=== PATIENT | male | born 1995 | race Caucasian/White ===

== ENCOUNTER 2019-02-15 09:12 | Emergency (ER) | payer MEDICAID, OTHER ==
[2019-02-15 09:41] VITALS: BP 128/63; PULSE 86
--- NOTE | 2019-02-15 10:09 | EDM.PDOC ---
ED HPI GENERAL MEDICAL PROBLEM - General Chief Complaint: General Stated Complaint: BODY NUMBNESS/COLD SYMPTOMS Time Seen by Provider: 02/15/19 09:46 Source of Information: Reports: Patient History Limitations: Reports: No Limitations - History of Present Illness INITIAL COMMENTS - FREE TEXT/NARRATIVE: The patient presents with a cough, shortness of breath, generalized weakness. This has been going on for about 2 weeks. The past couple days are worse. He is coughing up yellow phlegm. He did not measure any temp. He has not been able to eat or drink much and he nearly passed out a few times. He has nausea but no vomiting. He has some shortness of breath but no chest pain. He has no medical problems. He also has muscle aches. Onset: Gradual Duration: Week(s): (2) Location: Reports: Generalized Quality: Reports: Ache Severity: Moderate Improves with: Reports: None Worsens with: Reports: None Associated Symptoms: Reports: Cough, Nausea/Vomiting, Shortness of Breath. Denies: Fever/Chills, Headaches Generalized Pain Score (Numeric/FACES): 8 - Related Data Allergies Allergy/AdvReac Type Severity Reaction Status Date / Time lactose Allergy Stomach Verified 02/15/19 09:41 Upset Home Meds: Home Meds Azithromycin [Zithromax] 250 mg PO DAILY #6 tab 02/15/19 [Rx] Codeine/Promethazine [Phenergan with Codeine] 5 - 10 ml PO Q6HR PRN #300 ml 07/05 [Rx] Past Medical History - Past Health History Medical/Surgical History: Denies Medical/Surgical History Gastrointestinal History: Reports: Other (See Below) Other Gastrointestinal History: H-pylori Social & Family History - Caffeine Use Caffeine Use: Reports: Soda - Living Situation & Occupation Living situation: Reports: Single Occupation: Unemployed ED ROS GENERAL - Review of Systems Review Of Systems: See Below Constitutional: Reports: Chills, Malaise, Weakness, Fatigue HEENT: Reports: No Symptoms Respiratory: Reports: Shortness of Breath, Cough Cardiovascular: Reports: No Symptoms Endocrine: Reports: No Symptoms GI/Abdominal: Reports: Nausea. Denies: Abdominal Pain, Vomiting : Reports: No Symptoms Musculoskeletal: Reports: No Symptoms ED EXAM, GENERAL - Physical Exam Exam: See Below Exam Limited By: No Limitations General Appearance: Alert, No Apparent Distress Ears: Normal External Exam Nose: Normal Inspection Head: Atraumatic, Normocephalic Neck: Normal Inspection, Supple, Non-Tender Respiratory/Chest: No Respiratory Distress, Wheezing (Mild) Cardiovascular: Regular Rate, Rhythm, No Edema, No Murmur GI/Abdominal: Soft, Non-Tender, No Organomegaly, No Mass Back Exam: Normal Inspection Extremities: Normal Inspection Course - Vital Signs Last Recorded V/S: Last Vital Signs Temp 98.2 F 02/15/19 09:38 Pulse 86 02/15/19 09:38 Resp 18 02/15/19 09:38 BP 128/63 02/15/19 09:38 Pulse Ox 99 02/15/19 09:38 Departure - Departure Time of Disposition: 10:15 Disposition: Home, Self-Care 01 Condition: Good Clinical Impression: Bronchitis - Discharge Information *PRESCRIPTION DRUG MONITORING PROGRAM REVIEWED*: No *COPY OF PRESCRIPTION DRUG MONITORING REPORT IN PATIENT HERLINDA: No Prescriptions: Codeine/Promethazine [Phenergan with Codeine] 5 - 10 ml PO Q6HR PRN #300 ml PRN Reason: Cough Azithromycin [Zithromax] 250 mg PO DAILY #6 tab Referrals: Susana Yan NP [Primary Care Provider] - 1 Week Forms: ED Department Discharge Additional Instructions: Use the medicine as prescribed. Take tylenol or motrin for pain or fever. Drink plenty of fluids. Please return if you are worse.
== END 2019-02-15 10:25 | disposition home or self-care (01) ==
LOC: JD.ED 09:12
DX: J40 Bronchitis, not specified as acute or chronic (principal); Z91.011 Allergy to milk products
CPT/HCPCS: 99283

== ENCOUNTER 2020-05-10 07:15 | Emergency (ER) | payer SELFPAY ==
[2020-05-10 07:31] VITALS: BP 127/83; PULSE 84
--- NOTE | 2020-05-10 08:06 | EDM.PDOC ---
ED HPI GENERAL MEDICAL PROBLEM - General Chief Complaint: ENT Problem Stated Complaint: DENTAL COMPLAINT Time Seen by Provider: 05/10/20 07:56 - History of Present Illness INITIAL COMMENTS - FREE TEXT/NARRATIVE: 24-year-old male presents the emergency room with dental pain. Patient has been having right-sided dental pain his wisdom teeth are coming in is mostly the upper wisdom tooth. He denies fevers or chills but he has pain radiating up into his ear down his jaw. This is been going on for about a month progressively getting worse. He is trying to get into see a dentist and is waiting for some insurance issues to get straightened out. Patient denies any other complaints at this time. Tooth/Teeth Pain Score (Numeric/FACES): 9 - Related Data Allergies Allergy/AdvReac Type Severity Reaction Status Date / Time lactose Allergy Stomach Verified 05/10/20 07:31 Upset Home Meds: Home Meds Acetaminophen/HYDROcodone [[place] 325-5 MG] 1 - 2 tab PO Q6H PRN #20 tablet 05/10/20 [Rx] Amoxicillin 500 mg PO TID #29 capsule 05/10/20 [Rx] Past Medical History - Past Health History Medical/Surgical History: Denies Medical/Surgical History Gastrointestinal History: Reports: Other (See Below) Other Gastrointestinal History: H-pylori Social & Family History - Tobacco Use Tobacco Use Status *Q: Current Every Day Tobacco User Years of Tobacco use: 2 Packs/Tins Daily: 0.2 - Caffeine Use Caffeine Use: Reports: None - Recreational Drug Use Recreational Drug Use: Yes Recreational Drug Type: Reports: Marijuana/Hashish Recreational Drug Use Frequency: Daily - Living Situation & Occupation Living situation: Reports: Single Occupation: Unemployed ED ROS ENT - Review of Systems Review Of Systems: See Below Constitutional: Reports: No Symptoms HEENT: Reports: Dental Pain Respiratory: Reports: No Symptoms Cardiovascular: Reports: No Symptoms GI/Abdominal: Reports: No Symptoms ED EXAM, ENT - Physical Exam Exam: See Below Exam Limited By: No Limitations General Appearance: Alert, No Apparent Distress Ears: Normal External Exam, Normal Canal, Hearing Grossly Normal, Normal TMs Nose: Normal Inspection, Normal Mucousa, No Blood Mouth/Throat: Normal Oropharynx, Other (His teeth in general seem to be in pretty good shape his gums seem to be in pretty good shape. His wisdom teeth are starting to come through and are very tender on the left side he has a little bit of erythema of the gums around the upper tooth. No drainage) Head: Atraumatic, Normocephalic Neck: Normal Inspection, Supple, Non-Tender, Full Range of Motion. No: Lymphadenopathy (L), Lymphadenopathy (R) Respiratory/Chest: No Respiratory Distress, Lungs Clear, Normal Breath Sounds Cardiovascular: Normal Peripheral Pulses, Regular Rate, Rhythm, No Edema Course - Vital Signs Last Recorded V/S: Last Vital Signs Temp 36.9 C 05/10/20 07:27 Pulse 84 05/10/20 07:27 Resp 18 05/10/20 07:27 BP 127/83 05/10/20 07:27 Pulse Ox 99 05/10/20 07:27 - Orders/Labs/Meds Orders: Active Orders 24 hr Category Date Time Status Acetaminophen/HYDROcodone [[place] 325-5 MG] Med 05/10/20 08:07 Once 1 tab PO ONETIME ONE Amoxicillin [Amoxil] Med 05/10/20 08:07 Once 500 mg PO ONETIME ONE Departure - Departure Time of Disposition: 08:11 Disposition: Home, Self-Care 01 Clinical Impression: Pain, dental - Discharge Information Referrals: Susana Yan NP [Primary Care Provider] - Forms: ED Department Discharge Additional Instructions: Return to the emergency room with any questions problems or worsening symptoms. You have been started on amoxicillin this is an antibiotic take 1 3 times a day until all gone. You have been given some hydrocodone, to help with the more severe pain. Use this mostly in the evenings and allow 12 hours after taking this medication before driving or returning to work. Follow-up with a dentist as soon as you can. Sepsis Event Note (ED) - Evaluation Sepsis Screening Result: No Definite Risk - Focused Exam Vital Signs: Vital Signs Temp Pulse Resp BP Pulse Ox 05/10/20 07:27 36.9 C 84 18 127/83 99 - My Orders Last 24 Hours: My Active Orders 05/10/20 08:07 Acetaminophen/HYDROcodone [[place] 325-5 MG] 1 tab PO ONETIME ONE Amoxicillin [Amoxil] 500 mg PO ONETIME ONE - Assessment/Plan Last 24 Hours: My Active Orders 05/10/20 08:07 Acetaminophen/HYDROcodone [[place] 325-5 MG] 1 tab PO ONETIME ONE Amoxicillin [Amoxil] 500 mg PO ONETIME ONE
[2020-05-10] MEDS ORDERED: Amoxicillin 500 MG Cap PO ONE (08:07)
[2020-05-10] MEDS ORDERED: Acetaminophen/HYDROcodone 325-5 MG Tab PO ONE (08:07)
== END 2020-05-10 08:30 | disposition home or self-care (01) ==
LOC: JD.ED 07:15
DX: K08.89 Other specified disorders of teeth and supporting structures (principal); F17.210 Nicotine dependence, cigarettes, uncomplicated; Z91.048 Other nonmedicinal substance allergy status
CPT/HCPCS: 99282; A9270; 99283

== ENCOUNTER 2020-05-11 04:48 | Emergency (ER) | payer SELFPAY ==
[2020-05-11 05:07] VITALS: BP 150/89
[2020-05-11] MEDS ORDERED: HYDROmorphone 1 MG/ML Syringe IVPUSH ONE (05:17)
[2020-05-11] MEDS ORDERED: Ondansetron 4 MG/2 ML SDV IVPUSH ONE (05:19)
--- NOTE | 2020-05-11 05:21 | EDM.PDOC ---
<Paul Gao Malissa - Last Filed: 05/11/20 15:02> ED HPI GENERAL MEDICAL PROBLEM - General Chief Complaint: ENT Problem Stated Complaint: tooth pain Time Seen by Provider: 05/11/20 04:58 - Related Data Allergies Allergy/AdvReac Type Severity Reaction Status Date / Time lactose Allergy Stomach Verified 05/11/20 05:07 Upset Home Meds: Home Meds Acetaminophen/HYDROcodone [[place] 325-5 MG] 1 - 2 tab PO Q6H PRN #20 tablet 05/10/20 [Rx] Amoxicillin 500 mg PO TID #29 capsule 05/10/20 [Rx] Course - Re-Assessments/Exams Free Text/Narrative Re-Assessment/Exam: 05/11/20 07:54 Care of this patient has been assumed from Dr. Alicea at change of shift. CT scan of the maxillofacial bones has been completed. The globes appear grossly intact with no definite intraorbital hematoma. The temporomandibular joints are normally aligned. The orbital floors and lamina appreciated are intact. No acute fractures identified. Mild chronic mucosal thickening involves the floor of the maxillary sinuses slightly more prominent on the right than on the left. The visualized mastoid air cells are clear. No soft tissue collection to suggest abscess is identified. The visualized intracranial structures appear grossly normal. Dental caries appear to involve the third maxillary molars bilaterally and the left second maxillary molar is absent. There is no significant periapical lucency about the teeth. Plan patient will be given Rocephin 2 g intravenously to bring the infection under control. He will continue to use [place] tabs 2 every 4 hours as necessary for pain relief. He has a prescription for amoxicillin which he will continue to use as well. Departure - Departure Time of Disposition: 09:10 Disposition: Home, Self-Care 01 Condition: Fair Clinical Impression: Infected dental caries - Discharge Information *PRESCRIPTION DRUG MONITORING PROGRAM REVIEWED*: Not Applicable *COPY OF PRESCRIPTION DRUG MONITORING REPORT IN PATIENT HERLINDA: Not Applicable Instructions: Diet and Dental Disease Referrals: Susana Yan NP [Primary Care Provider] - Forms: ED Department Discharge, ED Return to Work/School Form Additional Instructions: Evaluation in the emergency room today in regards to increased severe pain right upper third molar tooth which is not yet fully erupted. Dr. Alicea ordered a CT scan of the maxillofacial bones to identify the cause of the severe pain. CT scan reveals that you have dental caries worn breakdown of the third molar teeth in the upper maxilla on both sides worse on the right side as compared to the left. There is therefore an infection developing around the nerve root on the right upper third molar causing current pain syndrome. The teeth will have to be extracted by an oral surgeon since they have not fully erupted and you will r equire some degree of sedation to allow this procedure to be performed. In the meantime you were treated with a dose of Rocephin antibiotic 2 g intravenously in the ED. This will start to work in 2 to 4 hours and will last for the next 24 hours. Continue the amoxicillin that you were started on yesterday as prescribed by Dr. Velásquez as well as pain medicine [place] 5/325 mg usually 2 tablets every 3-4 hours as necessary for pain relief for couple of days until the antibiotics become effective. <Girish Alicea - Last Filed: 05/12/20 07:06> ED HPI GENERAL MEDICAL PROBLEM - General Source of Information: Reports: Patient, Old Records (ED visit 05/10/2020) History Limitations: Reports: No Limitations - History of Present Illness INITIAL COMMENTS - FREE TEXT/NARRATIVE: Mr. Diaz is a very pleasant 24-year-old man who, medical records indicate, was seen in this ED just yesterday morning, already, 05/10/2020, with a complaint at that time of a lower right wisdom tooth pain progressively worsening over the past month. He had not arranged to see a dentist. He had not had any fever or oral drainage. He was given a single tablet of [place] and a single tablet of amoxicillin 500 mg before being discharged home with prescripti ons for [place], 1 to 2 tablets po Q6 hrs prn #20 and amoxicillin 500 mg 1 tab po TID # 29. The patient now returns to the ED stating that he took 2 tablets of [place] yesterday afternoon, and when that did not help with his pain, he took a third tablet around 22:00 last night, however, he states that the [place] is not helping, and that he has pain radiating to his right ear and head. He is tearful. Here in the ED, the patient's initial BP is found to be modestly elevated at 150/89, otherwise, he is hemodynamically stable, afebrile, saturating 97% on room air. Other than his dental pain, the patient denies having a recent fever, chills, sore throat, ear pain, nasal or sinus congestion, cough, dyspnea, chest pain, palpitations, nausea, vomiting, constipation, diarrhea, abdominal pain, urinary symptoms, recent weight gain or weight loss, recent bloody bowel movements or black bowel movements, recent joint aches, headaches, or rashes. The patient's PCP is Susana Yan NP. He states that he has already received an influenza vaccine this season. Right Lower Tooth/Teeth Pain Score (Numeric/FACES): 10 Past Medical History - Past Health History Medical/Surgical History: Denies Medical/Surgical History Social & Family History - Tobacco Use Tobacco Use Status *Q: Current Every Day Tobacco User Years of Tobacco use: 2 Packs/Tins Daily: 0.3 - Caffeine Use Caffeine Use: Reports: Coffee - Alcohol Use Alcohol Use History: No - Recreational Drug Use Recreational Drug Use: Yes Drug Use in Last 12 Months: Yes Recreational Drug Type: Reports: Marijuana/Hashish (smokes 2 to 3 times a week) - Living Situation & Occupation Living situation: Reports: Single, with Family Occupation: Employed ([employer] and [employer]) ED ROS ENT - Review of Systems Review Of Systems: Comprehensive ROS is negative, except as noted in HPI. ED EXAM, ENT - Physical Exam Exam: See Below Exam Limited By: No Limitations General Appearance: Alert, WD/WN, Mild Distress (appears uncomfortable) Eye Exam: Bilateral Eye: EOMI, Normal Inspection Ears: Normal External Exam, Normal Canal, Hearing Grossly Normal, Normal TMs Nose: Normal Inspection, Normal Mucousa, No Blood Mouth/Throat: Normal Gums, Normal Lips, Normal Oropharynx, Other (Overall good dentition. Tooth #32 appears to be erupting. No gingival swelling or pointing.) Head: Atraumatic, Normocephalic Neck: Normal Inspection, Supple, Non-Tender, Full Range of Motion. No: Lymph adenopathy (L), Lymphadenopathy (R) Course - Vital Signs Last Recorded V/S: Last Vital Signs Temp 37.2 C 05/11/20 05:03 Pulse 70 05/11/20 08:56 Resp 18 05/11/20 05:03 BP 150/89 H 05/11/20 05:03 Pulse Ox 100 05/11/20 08:56 - Orders/Labs/Meds Meds: Medications Discontinued Medications Generic Name Dose Route Start Last Admin Trade Name Lucio PRN Reason Stop Dose Admin Hydromorphone HCl 1 mg 05/11/20 05:17 05/11/20 05:44 Dilaudid IVPUSH 05/11/20 05:18 1 mg ONETIME ONE Administration Sodium Chloride 1,000 mls @ 150 mls/hr 05/11/20 05:30 05/11/20 05:43 Normal Saline IV 150 mls/hr ASDIRECTED TAMAR Administration Ceftriaxone Sodium 2 gm/ 100 mls @ 200 mls/hr 05/11/20 07:58 05/11/20 08:07 Sodium Chloride IV 05/11/20 08:27 200 mls/hr ONETIME ONE Administration Ondansetron HCl 4 mg 05/11/20 05:19 05/11/20 05:43 Zofran IVPUSH 05/11/20 05:20 4 mg ONETIME ONE Administration - Re-Assessments/Exams Free Text/Narrative Re-Assessment/Exam: 05/11/20 05:18 The patient's lower right third molar appears to be erupting and is likely the source of his pain due to overcrowding, however, the patient is in tears over pain despite taking [place], therefore I have ordered a CT maxillofacial with IV contrast to rule out an infection or some other etiology. In the meantime, the patient will be given IV Dilaudid, IV Zofran, and IV fluid. 05/11/20 05:56 Notified by the case technician that she performed the CT without IV contrast. Unfortunately, the CT will need to be repeated with IV contrast in order to evaluate for an infectious process. 05/11/20 07:[address] maxillofacial with IV contrast has not yet been performed. Case discussed with Dr. Pabon, and care of the patient turned over to him at this time, for change of shift. Sepsis Event Note (ED) - Evaluation Sepsis Screening Result: No Definite Risk
[2020-05-11] MEDS ORDERED: Sodium Chloride 0.9% 1,000 ML IV SCH (05:30)
[2020-05-11] MEDS ORDERED: cefTRIAXone 2 GM in Sodium Chloride 0.9% 100 ML IV ONE (07:58)
[2020-05-11 08:58] VITALS: PULSE 70
--- NOTE | 2020-05-11 09:57 | CT ---
Facial structures (without and with intravenous contrast) Technique: Multiple axial sections through the facial structures were obtained without and with intravenous contrast. Reconstructed sagittal and coronal images were obtained. Comparison: No prior facial structure is available. Findings: Mild areas of mucosal thickening and possible minimal retention cysts are noted within both maxillary sinuses. Other visualized paranasal sinuses show no additional abnormality. The mastoid sinuses are clear. Right and left globes are symmetric. No retro-bulbar abnormality is appreciated. No acute fracture is appreciated. There are dental caries being seen within the approximate third maxillary molar on both sides. No abnormal lucency is seen around any teeth root. No acute fracture is appreciated. There is no adenopathy being seen. Submandibular and parotid salivary glands are normal. Impression: 1. Dental caries within the approximate third maxillary molar on both sides. 2. Minimal sinus disease within both maxillary sinuses which appear to represent minimal chronic sinusitis. Diagnostic code #3 I agree with preliminary report from [facility], finalized on 05/11/20, 8:15 AM DIRECTOR SURGICAL
== END 2020-05-11 08:58 | disposition home or self-care (01) ==
LOC: JD.ED 04:48
DX: K04.7 Periapical abscess without sinus (principal); K02.9 Dental caries, unspecified; F17.210 Nicotine dependence, cigarettes, uncomplicated; Z91.048 Other nonmedicinal substance allergy status
CPT/HCPCS: 70488; 96365; 96375; 99283; J0696; J1170; J2405; J7030; J7050; 70487; 70487-26

== ENCOUNTER 2020-05-30 09:28 | Emergency (ER) | payer SELFPAY ==
[2020-05-30 09:38] VITALS: BP 133/82; PULSE 67
--- NOTE | 2020-05-30 09:59 | EDM.PDOC ---
<Cher Padilla - Last Filed: 05/30/20 10:25> ED HPI GENERAL MEDICAL PROBLEM - General Chief Complaint: Gastrointestinal Problem Stated Complaint: BLOOD IN STOOL Time Seen by Provider: 05/30/20 09:41 Source of Information: Reports: Patient History Limitations: Reports: No Limitations - History of Present Illness INITIAL COMMENTS - FREE TEXT/NARRATIVE: Hardik is a very anxious 25 year old presenting to the ED with complaints of "shitting blood" for the past week. He states he has chronic constipation and has gone three times during the week, and bright red blood has been present with every bowel movement. He states it has gotten progressively worse and this morning it was "junky" and decided to seek medical care. He is extremely anxious and admits he was reluctant to seek medical care because he "doesn't like doctors." He describes his abdominal pain as stabbing and severe, ranging from 8-10/10. He notes that he can feel when he needs to have a bowel movement as it moves across his lower abdomen as the pain radiates. He states he had a colonoscopy years ago when he was in the , but hasn't had one recently. He mentioned his constipation problems were the reason why he was discharged from the . He notes he does have a history of gastric ulcers in high school, but was treated with antibiotics and it cleared up. He is unaware whether it was H. pylori or some other gastric bacteria. He denies fever, chills, cough, shortness of breath, hematuria. Lower Abdomen Pain Score (Numeric/FACES): 7 - Related Data Allergies Allergy/AdvReac Type Severity Reaction Status Date / Time lactose Allergy Stomach Verified 05/30/20 09:37 Upset Home Meds: Home Meds Acetaminophen/HYDROcodone [[place] 325-5 MG] 1 - 2 tab PO Q6H PRN #20 tablet 05/10/20 [Rx] Amoxicillin 500 mg PO TID #29 capsule 05/10/20 [Rx] Past Medical History - Past Health History Medical/Surgical History: Denies Medical/Surgical History Gastrointestinal History: Reports: GI Bleed, Other (See Below) Other Gastrointestinal History: H-pylori Psychiatric History: Reports: Anxiety Social & Family History - Tobacco Use Tobacco Use Status *Q: Current Every Day Tobacco User Years of Tobacco use: 2 Packs/Tins Daily: 0.5 - Caffeine Use Caffeine Use: Reports: Tea - Recreational Drug Use Recreational Drug Type: Reports: Marijuana/Hashish - Living Situation & Occupation Living situation: Reports: Single, with Family Occupation: Employed ([employer]) ED ROS GENERAL - Review of Systems Review Of Systems: Comprehensive ROS is negative, except as noted in HPI. ED EXAM, GI/ABD - Physical Exam Exam: See Below Exam Limited By: No Limitations General Appearance: Alert, WD/WN, Anxious (Patient has history of severe anxiety and appears to be uneasy about being in the ED today. ) Throat/Mouth: Normal Inspection, Normal Lips, Normal Teeth, Normal Gums, Normal Oropharynx, Normal Voice, No Airway Compromise Head: Atraumatic, Normocephalic Neck: Normal Inspection, Supple, Non-Tender, Full Range of Motion Respiratory/Chest: No Respiratory Distress, Lungs Clear, Normal Breath Sounds, No Accessory Muscle Use, Chest Non-Tender Cardiovascular: Normal Peripheral Pulses, Regular Rate, Rhythm, No Edema, No Gallop, No JVD, No Murmur, No Rub GI/Abdominal Exam: Normal Bowel Sounds, Soft, No Organomegaly, No Distention, No Abnormal Bruit, No Mass, Tender (Patient is extremely tender to palpation in his LLQ, LRQ is mildly tender to palpation ) Back Exam: Normal Inspection, Full Range of Motion, NT Extremities: Normal Inspection, Normal Range of Motion, Non-Tender, Normal Capillary Refill, No Pedal Edema Neurological: Alert, Oriented, CN II-XII Intact, Normal Cognition Psychiatric: Anxious Skin Exam: Warm, Dry, Intact, Normal Color, No Rash Lymphatic: No Adenopathy Course - Re-Assessments/Exams Free Text/Narrative Re-Assessment/Exam: 05/30/20 10:02 Hardik is an anxious 25 year old male presenting to the ED with complaints of bloody stools for one week. He is extremely anxious today and is apprehensive to the tests we'll have to perform, so as of now, testing will be conservative. He did request for a male to do his rectal exam. Departure - Departure Disposition: Home, Self-Care 01 Clinical Impression: Rectal hemorrhage - Discharge Information Instructions: Gastrointestinal Bleeding, [id number] Referrals: PCP,None [Primary Care Provider] - Forms: ED Department Discharge Additional Instructions: Preparation H suppositories, available OTC. 1 twice daily for 1 week and thereafter as needed. Drink plenty of water to maintain hydration. High fiber diet. Stool softner such as colace or pericolace twice daily. Laxative such as miralax once or twice daily as needed. Prunes or prune juice twice dialy as needed. Follow up with Lisa Mei at the clinic in 4 to 5 days if symptoms not resolving as expected. Return to ED as needed if symptoms worsening in any way. Sepsis Event Note (ED) - Evaluation Sepsis Screening Result: No Definite Risk <Renny Henderson - Last Filed: 05/30/20 11:51> ED ROS GENERAL - Review of Systems GI/Abdominal: Reports: Constipation. Denies: Abdominal Pain, Diarrhea, Nausea, Vomiting ED EXAM, GI/ABD - Physical Exam GI/Abdominal Exam: Other (on rectal exam no visible blood externally or on glove, he does have a small external hemorrhoid. Small amt of stool only with mucous, mildly heme positive) Course - Vital Signs Last Recorded V/S: Last Vital Signs Temp 97.6 F 05/30/20 09:34 Pulse 67 05/30/20 09:34 Resp 18 05/30/20 09:34 BP 133/82 05/30/20 09:34 Pulse Ox 99 05/30/20 09:34 - Re-Assessments/Exams Free Text/Narrative Re-Assessment/Exam: 05/30/20 11:49 Initial hx and exam was done by BARI Elam student. I agree with her hx and exam as documented. I have also interviewed and examined patient. Discharge instr. as documented. Departure - Departure Time of Disposition: 10:13 Condition: Fair Sepsis Event Note (ED) - Focused Exam Vital Signs: Vital Signs Temp Pulse Resp BP Pulse Ox 05/30/20 09:34 97.6 F 67 18 133/82 99
== END 2020-05-30 10:25 | disposition home or self-care (01) ==
LOC: JD.ED 09:28
DX: K62.5 Hemorrhage of anus and rectum (principal); Z91.048 Other nonmedicinal substance allergy status; Z72.0 Tobacco use
CPT/HCPCS: 99283; 99284

== ENCOUNTER 2021-02-03 11:20 | Emergency (ER) | payer SELFPAY ==
[2021-02-03 12:49] VITALS: BP 126/73; PULSE 81
[2021-02-03] MEDS ORDERED: Ketorolac 60 MG/2 ML SDV IM ONE (12:57)
--- NOTE | 2021-02-03 13:30 | CR ---
Left humerus: 2 views of the left humerus were obtained. Comparison: No prior humerus exam is available. No fracture or other bony abnormality is appreciated. Impression: 1. Nothing acute is seen on 2 view left humerus study. Diagnostic code #1
--- NOTE | 2021-02-03 13:37 | CR ---
Left shoulder: 3 views of the left shoulder were obtained. Comparison: No prior shoulder study is available. Acromioclavicular and glenohumeral joints appear within normal limits. Small bony density is noted off the superior glenoid. Slight lucency is seen within the superior glenoid. Difficult to exclude acute change if patient has correlating symptoms. No additional fracture, dislocation or other bony abnormality is appreciated. Impression: 1. Slight findings off the superior glenoid (as described above), possibly due to acute change if patient has symptoms. 2. Left shoulder study is otherwise unremarkable. Diagnostic code #3
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
== END 2021-02-03 14:31 | disposition home or self-care (01) ==
LOC: JD.ED 11:20
DX: M25.512 Pain in left shoulder (principal); Z91.011 Allergy to milk products; Z72.0 Tobacco use
CPT/HCPCS: 73030; 73060; 96372; 99284; J1885; 99283

== ENCOUNTER 2021-03-06 19:14 | Emergency (ER) | payer SELFPAY ==
[~2021-03-06 19:14] MED LIST: Flumazenil 0.1 MG/ML 5 ML MDV ONE; Naloxone 0.4 MG/ML SDV ONE; Naloxone 2 MG/2 ML Syringe ONE
[2021-03-06] MEDS ORDERED: Ondansetron 4 MG/2 ML SDV IVPUSH ONE (19:28)
[2021-03-06] MEDS ORDERED: Sodium Chloride 0.9% 1,000 ML IV SCH (19:30)
--- NOTE | 2021-03-06 19:53 | EDM.PDOCBH ---
ED HPI GENERAL MEDICAL PROBLEM - General Stated Complaint: OVERDOSE Time Seen by Provider: 03/06/21 19:16 Source of Information: Reports: Patient History Limitations: Reports: Intoxication - History of Present Illness INITIAL COMMENTS - FREE TEXT/NARRATIVE: Mr. Diaz is a very pleasant 25-year-old man who now presents to the ED stating that he took 1 tablet of fluoxetine, 2 tablets of an unnamed muscle relaxant, 1 alprazolam 0.5 mg, and 10 tablets of gabapentin, starting this past 03/02/2021, or 03/03/2021, along with yes, 03/05/2021 and today. The patient thought that today was Wednesday, however, so perhaps he took these pills Wednesday, yes, and today. He denies also taking any alcohol. When asked why he took the pills, he replied "Wouldn't be here". He states that he took them due to despondency over a friend of his dying, and his mother possibly having a stroke -he states that one of her eyelids is closed, while the other is not, and that she has some body aches. He states that she is presently being evaluated at [facility]. The patient states that he has a history of anxiety and depression. He states that he tried to hang himself when he was 16 or 17 years old, but that, when discovered, he had a panic attack, and that someone took pity on him and did not have him psychiatrically hospitalized. He states that he has never been psychiatrically hospitalized. Here in the ED tonight, the patient is found to be hemodynamically stable, afebrile, saturating 97% on room air. He is lethargic, falling asleep perhaps 8-10 times during my evaluation, but able to be woken with verbal stimulation alone. He is in no acute distress, although he is asking for something to "calm me down". The patient denies having a recent fever, chills, sore throat, ear pain, nasal or sinus congestion, cough, dyspnea, chest pain, palpitations, nausea, vomiting, constipation, diarrhea, abdominal pain, urinary symptoms, recent weight gain or weight loss, recent bloody bowel movements or black bowel movements, recent joint aches, headaches, or rashes. The patient's PCP is Susana Yan NP. His Orthopedic Surgeon is Dr. Moises Ewing. He has not received a COVID vaccination. - Related Data Allergies Allergy/AdvReac Type Severity Reaction Status Date / Time lactose Allergy Stomach Verified 03/06/21 20:18 Upset Past Medical History Psychiatric History: Reports: Anxiety (untreated), Depression (untreated) Social & Family History - Tobacco Use Tobacco Use Status *Q: Current Every Day Tobacco User Tobacco Use Within Last Twelve Months: Vaping (on occasion) Years of Tobacco use: 1 Packs/Tins Daily: 0.4 Packs/Tins Daily Comment: Up to 2 ppd when feeling stressed Tobacco Use Comment: Started smoking 2018 - Caffeine Use Caffeine Use: Reports: None - Alcohol Use Alcohol Use History: Yes Date/Time of Last Drink Comment: History of excessive drinking - sober x 2019 - Recreational Drug Use Recreational Drug Use: Yes Drug Use in Last 12 Months: Yes Recreational Drug Type: Reports: Marijuana/Hashish (smokes "a lot" daily) - Living Situation & Occupation Living situation: Reports: Single, with Significant Other (Girlfriend), with Family (1 child) Occupation: Employed ([employer]) ED ROS GENERAL - Review of Systems Review Of Systems: Comprehensive ROS is negative, except as noted in HPI. ED EXAM, BEHAVIORAL HEALTH - Physical Exam Exam: See Below Exam Limited By: No Limitations General Appearance: No Apparent Distress, Lethargic, Thin Eye Exam: Bilateral Eye: EOMI, Normal Inspection Ears: Normal External Exam, Hearing Grossly Normal Nose: Normal Inspection Throat/Mouth: Normal Inspection, Normal Lips, Normal Voice, No Airway Compromise Head: Atraumatic, Normocephalic Neck: Normal Inspection, Full Range of Motion Respiratory/Chest: No Respiratory Distress, Lungs Clear, Normal Breath Sounds, No Accessory Muscle Use Cardiovascular: Normal Peripheral Pulses, Regular Rate, Rhythm, No Edema, No Gallop, No JVD, No Murmur, No Rub GI/Abdominal: Normal Bowel Sounds, Soft, Non-Tender, No Organomegaly, No Distention, No Abnormal Bruit, No Mass Back Exam: Normal Inspection, Full Range of Motion, NT Extremities: Normal Inspection, Normal Range of Motion, No Pedal Edema, Normal Capillary Refill Neurological: No Motor/Sensory Deficits, Disoriented to Time, Inattentive Skin Exam: Warm, Dry, Intact, Normal color, No rash #1 Interpretation EKG Date: 03/06/21 Time: 19:50 Rhythm: NSR Rate (Beats/Min): 73 Leopold: Normal P-Wave: Present QRS: Normal ST-T: Normal QT: Normal Comparison: No Change (08/08/2014) COURSE, BEHAVIORAL HEALTH COMP - Course Vital Signs: Last Vital Signs Temp 36.5 C 03/06/21 20:07 Pulse 67 03/07/21 06:00 Resp 18 03/07/21 06:00 BP 110/67 03/07/21 06:00 Pulse Ox 100 03/07/21 06:00 Orders, Labs, Meds: Active Orders 24 hr Category Date Time Status Sodium Chloride 0.9% [Normal Saline] 1,000 ml Med 03/06/21 19:30 Active IV ASDIRECTED Medication Orders Sodium Chloride (Normal Saline) 1,000 mls @ 150 mls/hr IV ASDIRECTED TAMAR Last Admin: 03/06/21 19:51 Dose: 150 mls/hr Documented by: DWIGHT Laboratory Tests 03/06/21 03/06/21 03/06/21 Range/Units 19:20 19:20 19:20 WBC 6.12 (4.23-9.07) K/mm3 RBC 5.21 (4.63-6.08) M/mm3 Hgb 15.8 (13.7-17.5) gm/dl Hct 46.1 (40.1-51.0) % MCV 88.5 D (79.0-92.2) fl MCH 30.3 (25.7-32.2) pg MCHC 34.3 (32.2-35.5) g/dl RDW Std Deviation 38.8 (35.1-43.9) fL Plt Count 228 (163-337) K/mm3 MPV 9.8 (9.4-12.3) fl Neutrophils % (Manual) 52 (40-60) % Band Neutrophils % 1 (0-10) % Lymphocytes % (Manual) 38 (20-40) % Atypical Lymphs % 0 % Monocytes % (Manual) 6 (2-10) % Eosinophils % (Manual) 2 (0.8-7.0) % Basophils % (Manual) 1 (0.2-1.2) Platelet Estimate Adequate RBC Morph Comment Normal Sodium 142 (136-145) mEq/L Potassium 3.4 L (3.5-5.1) mEq/L Chloride 107 (98-107) mEq/L Carbon Dioxide 29 (21-32) mEq/L Anion Gap 9.4 (5-15) BUN 11 (7-18) mg/dL Creatinine 1.1 (0.7-1.3) mg/dL Est Cr Clr Drug Dosing TNP Estimated GFR (MDRD) > 60 (>60) mL/min BUN/Creatinine Ratio 10.0 L (14-18) Glucose 88 (70-99) mg/dL Calcium 8.7 (8.5-10.1) mg/dL Total Bilirubin 0.9 (0.2-1.0) mg/dL AST 10 L (15-37) U/L ALT 21 (16-63) U/L Alkaline Phosphatase 55 (46-116) U/L Total Protein 7.4 (6.4-8.2) g/dl Albumin 4.3 (3.4-5.0) g/dl Globulin 3.1 gm/dL Albumin/Globulin Ratio 1.4 (1-2) TSH 3rd Generation 0.792 (0.358-3.74) uIU/mL Salicylates 1.7 L (2.8-20) mg/dL Urine Opiates Screen (NYZAZE=868) Ur Buprenorphine Scrn (CUTOFF=10) Ur Oxycodone Screen (MCP9GJ=558) Urine Methadone Screen (HHX8FU=391) Ur Propoxyphene Screen (TLTODV=663) Acetaminophen 0 L (10-30) ug/mL Ur Barbiturates Screen (UQRTFZ=198) Ur Tricyclics Screen (RWQECO=851) Ur Phencyclidine Scrn (CUTOFF=25) Ur Amphetamine Screen (OGGDEU=414) U Methamphetamines Scrn (ETIFBP=902) U Benzodiazepines Scrn (LFNRWH=036) U Cocaine Metab Screen (MJMXDT=315) U Marijuana (THC) Screen (CUTOFF=50) Ethyl Alcohol 0.00 (0.00) gm% SARS-CoV-2 RNA (OLGA) (NEGATIVE) 03/06/21 03/07/21 Range/Units 20:00 05:00 WBC (4.23-9.07) K/mm3 RBC (4.63-6.08) M/mm3 Hgb (13.7-17.5) gm/dl Hct (40.1-51.0) % MCV (79.0-92.2) fl MCH (25.7-32.2) pg MCHC (32.2-35.5) g/dl RDW Std Deviation (35.1-43.9) fL Plt Count (163-337) K/mm3 MPV (9.4-12.3) fl Neutrophils % (Manual) (40-60) % Band Neutrophils % (0-10) % Lymphocytes % (Manual) (20-40) % Atypical Lymphs % % Monocytes % (Manual) (2-10) % Eosinophils % (Manual) (0.8-7.0) % Basophils % (Manual) (0.2-1.2) Platelet Estimate RBC Morph Comment Sodium (136-145) mEq/L Potassium (3.5-5.1) mEq/L Chloride (98-107) mEq/L Carbon Dioxide (21-32) mEq/L Anion Gap (5-15) BUN (7-18) mg/dL Creatinine (0.7-1.3) mg/dL Est Cr Clr Drug Dosing Estimated GFR (MDRD) (>60) mL/min BUN/Creatinine Ratio (14-18) Glucose (70-99) mg/dL Calcium (8.5-10.1) mg/dL Total Bilirubin (0.2-1.0) mg/dL AST (15-37) U/L ALT (16-63) U/L Alkaline Phosphatase (46-116) U/L Total Protein (6.4-8.2) g/dl Albumin (3.4-5.0) g/dl Globulin gm/dL Albumin/Globulin Ratio (1-2) TSH 3rd Generation (0.358-3.74) uIU/mL Salicylates (2.8-20) mg/dL Urine Opiates Screen Negative (HGMSTV=232) Ur Buprenorphine Scrn Negative (CUTOFF=10) Ur Oxycodone Screen Negative (CLH5KV=353) Urine Methadone Screen Negative (ZMB5EX=040) Ur Propoxyphene Screen Negative (EAJGPE=869) Acetaminophen (10-30) ug/mL Ur Barbiturates Screen Negative (QTXRYM=533) Ur Tricyclics Screen Negative (SBJFGX=596) Ur Phencyclidine Scrn Negative (CUTOFF=25) Ur Amphetamine Screen Negative (IIRDGL=745) U Methamphetamines Scrn Negative (YXPUFY=931) U Benzodiazepines Scrn Presumptive positive H (RZPPLL=809) U Cocaine Metab Screen Negative (MZWTRK=709) U Marijuana (THC) Screen Presumptive positive H (CUTOFF=50) Ethyl Alcohol (0.00) gm% SARS-CoV-2 RNA (OLGA) Negative (NEGATIVE) Medications Generic Name Dose Route Start Last Admin Trade Name Freq PRN Reason Stop Dose Admin Sodium Chloride 1,000 mls @ 150 mls/hr 03/06/21 19:30 03/06/21 19:51 Normal Saline IV 150 mls/hr ASDIRECTED TAMAR Administration Discontinued Medications Generic Name Dose Route Start Last Admin Trade Name Freq PRN Reason Stop Dose Admin Ondansetron HCl 4 mg 03/06/21 19:28 03/06/21 19:52 Ondansetron 4 Mg/2 Ml Sdv IVPUSH 03/06/21 19:29 4 mg ONETIME ONE Administration Medical Clearance: 03/06/21 19:50 When asked what he thought would be the results of taking these pills, the patient responded "Wouldn't be here", indicating that this is a suicide attempt. I have ordered a standard psychiatric medical clearance panel + a swab for the SARS-CoV-2 virus. In the meantime, the patient will be given some IV fluid, and to decrease the likelihood that he vomits and aspirates, some IV Zofran. 03/06/21 22:31 The patient's CBC is unremarkable. His CMP is remarkable for slight hypokalemia of 3.4, and is otherwise unremarkable. His TSH is within normal limits at 0.792. His salicylate level is within normal limits at 1.7. His acetaminophen level is 0. His EtOH level is 0.00. His swab for the SARS-CoV-2 virus is negative. A urine sample for the urine drug screen has not yet been collected. 03/07/21 06:44 The patient's urine drug screen is positive for benzodiazepines and marijuana. The patient had a quiet night with his girlfriend at his side, but is now awake, alert, and very talkative. I clarified his PMHx/PSHxSocHx, which I updated. He readily acknowledges what he did, and clarified that he additionally took 800 mg of ibuprofen, 2 Zofran, and that the muscle relaxant was Norflex. The alprazolam was an old prescription of his, prescribed from [place] for panic attacks. He states that he has attempted suicide numerous times in the past, but psychiatrically hospitalized only once, when he was 16 or 17 years old, a fter attempting to hang himself. He states that he used to go to [facility], and found them to be extremely helpful. He has not been in many years, but would like to reestablish a counselor. I believe that is appropriate, therefore I will discharge him home. Departure - Departure Time of Disposition: 06:48 Disposition: Home, Self-Care 01 Condition: Good Clinical Impression: Suicide attempt by drug overdose - Discharge Information *PRESCRIPTION DRUG MONITORING PROGRAM REVIEWED*: Not Applicable *COPY OF PRESCRIPTION DRUG MONITORING REPORT IN PATIENT HERLINDA: Not Applicable Referrals: Susana Yan NP [Primary Care Provider] - Moises Ewing MD [Physician] - Additional Instructions: You were seen in the emergency room after taking a number of pills in a suicide attempt. Work-up in the ER included numerous blood tests, a urine drug screen, a swab for the SARS-CoV-2 virus, and an ECG. Your urine drug screen returned positive for benzodiazepines and marijuana. The remainder of your work-up was unremarkable. We recommend that you follow-up at [facility] at the next available appointment: [address] [phone] We also recommend that you get a COVID vaccination. If any other problems, please do not hesitate to return to the ER. Sepsis Event Note (ED) - Focused Exam Vital Signs: Vital Signs Temp Pulse Resp BP Pulse Ox 03/07/21 06:00 67 18 110/67 100 03/07/21 03:00 51 L 18 105/59 L 96 03/07/21 02:00 59 L 20 86/51 L 96 03/07/21 01:00 62 16 93/50 L 97 03/07/21 00:00 64 17 93/48 L 97 03/06/21 23:00 52 L 18 104/67 98 03/06/21 22:00 61 18 107/67 97 03/06/21 21:00 63 18 100/61 95 03/06/21 20:07 36.5 C 84 18 104/65 97 03/06/21 19:27 51 L 17 86/51 L 97 - My Orders Last 24 Hours: My Active Orders 03/06/21 19:30 Sodium Chloride 0.9% [Normal Saline] 1,000 ml IV ASDIRECTED - Assessment/Plan Last 24 Hours: My Active Orders 03/06/21 19:30 Sodium Chloride 0.9% [Normal Saline] 1,000 ml IV ASDIRECTED
[2021-03-06 20:03] LABS: ACETAMINOPHEN 0 ug/mL (10-30)
[2021-03-07 07:42] VITALS: BP 112/72; PULSE 71
== END 2021-03-07 07:36 | disposition home or self-care (01) ==
LOC: JD.ED 19:14
DX: T42.4X2A Poisoning by benzodiazepines, intentional self-harm, initial encounter (principal); T42.6X2A Poisoning by other antiepileptic and sedative-hypnotic drugs, intentional self-harm, initial encounter; F32.A Depression, unspecified; Z91.011 Allergy to milk products; Z72.0 Tobacco use; Z20.822 Contact with and (suspected) exposure to COVID-19
CPT/HCPCS: 36415; 80053; 80143; 80179; 80306; 80307; 84443; 85007; 85027; 87635; 93005; 96374; 99285; J2405; J7030; U0002

== ENCOUNTER 2021-05-31 13:57 | Emergency (ER) | payer SELFPAY ==
[2021-05-31 14:14] VITALS: BP 135/84; PULSE 76
== END 2021-05-31 15:39 | disposition home or self-care (01) ==
LOC: JD.ED 13:57
DX: F41.9 Anxiety disorder, unspecified (principal); Z91.011 Allergy to milk products
CPT/HCPCS: 36415; 80053; 84484; 85025; 85379; 86140; 93005; 93010; 99283-25; 99284

== ENCOUNTER 2021-06-22 09:13 | Emergency (ER) | payer SELFPAY ==
[2021-06-22 09:33] VITALS: BP 124/75; PULSE 85
[2021-06-22] MEDS ORDERED: cefTRIAXone 1 GM, Lidocaine 1% 2.1 ML IM ONE ×2 (09:48)
[2021-06-22] MEDS ORDERED: HYDROmorphone 1 MG/ML Syringe IM ONE (09:48)
== END 2021-06-22 10:28 | disposition home or self-care (01) ==
LOC: JD.ED 09:13
DX: K04.7 Periapical abscess without sinus (principal); Z91.011 Allergy to milk products
CPT/HCPCS: 96372; 99282; J0696; J1170; 99284

== ENCOUNTER 2021-08-18 23:05 | Emergency (ER) | payer SELFPAY ==
[2021-08-18 23:40] VITALS: BP 126/73; PULSE 81
[2021-08-19 01:01] LABS: CORONAVIRUS COVID-19 NAA NEGATIVE (NEGATIVE)
== END 2021-08-19 01:38 | disposition left against medical advice (07) ==
LOC: JD.ED 23:05
DX: Z20.822 Contact with and (suspected) exposure to COVID-19 (principal); Z53.21 Procedure and treatment not carried out due to patient leaving prior to being seen by health care provider
CPT/HCPCS: 0241U

== ENCOUNTER 2021-08-31 11:00 | Emergency (ER) | payer SELFPAY ==
[2021-08-31 11:12] VITALS: BP 132/79; PULSE 84
[2021-08-31] MEDS ORDERED: Ketorolac 60 MG/2 ML SDV IM ONE (11:30)
== END 2021-08-31 11:48 | disposition home or self-care (01) ==
LOC: JD.ED 11:00
DX: K03.81 Cracked tooth (principal); Z91.011 Allergy to milk products; Z72.0 Tobacco use
CPT/HCPCS: 96372; 99282; J1885; 99283

== ENCOUNTER 2021-10-16 17:54 | Emergency (ER) | payer SELFPAY ==
[2021-10-16 18:01] VITALS: BP 128/78; PULSE 94
[2021-10-16] MEDS ORDERED: Activated Charcoal/Water Susp 50 GM/240 ML Tube PO ONE (18:06)
[2021-10-16] MEDS ORDERED: Metoclopramide 10 MG/2 ML SDV IVPUSH ONE (18:15)
[2021-10-16] MEDS ORDERED: Dextrose 5%-0.9% NaCl 1,000 ML IV SCH (18:15)
[2021-10-16 19:06] LABS: ESTIMATED GFR > 60 mL/min (>60)
[2021-10-16 19:08] LABS: ACETAMINOPHEN 0 ug/mL (10-30)
[2021-10-16 19:21] LABS: CORONAVIRUS COVID-19 NAA NEGATIVE (NEGATIVE)
[2021-10-16] MEDS ORDERED: Ondansetron 4 MG/2 ML SDV IVPUSH ONE (20:04)
== END 2021-10-16 20:17 | disposition home or self-care (01) ==
LOC: JD.ED 17:54
DX: T36.0X1A Poisoning by penicillins, accidental (unintentional), initial encounter (principal); Z91.018 Allergy to other foods; Z20.822 Contact with and (suspected) exposure to COVID-19
CPT/HCPCS: 0240U; 36415; 80053; 80143; 80179; 80306; 80307; 84443; 85025; 93005; 96361; 96374; 96375; 99284; J2405; J2765; J7042

== ENCOUNTER 2021-10-18 22:05 | Emergency (ER) | payer SELFPAY ==
[2021-10-18 22:28] VITALS: BP 132/86; PULSE 100
[2021-10-19 00:26] LABS: ESTIMATED GFR > 60 mL/min (>60)
== END 2021-10-19 02:15 | disposition home or self-care (01) ==
LOC: JD.ED 22:05
DX: K92.2 Gastrointestinal hemorrhage, unspecified (principal); F17.210 Nicotine dependence, cigarettes, uncomplicated; Z90.49 Acquired absence of other specified parts of digestive tract; Z91.011 Allergy to milk products
CPT/HCPCS: 36415; 80053; 85025; 99283; 99284

== ENCOUNTER 2021-11-04 02:15 | Emergency (ER) | payer MEDICAID ==
[2021-11-04 02:38] VITALS: BP 126/77; PULSE 79
[2021-11-04] MEDS ORDERED: Pantoprazole 40 MG Vial IVPUSH ONE (03:26)
[2021-11-04] MEDS ORDERED: Ondansetron 4 MG/2 ML SDV IVPUSH ONE (03:28)
[2021-11-04] MEDS ORDERED: Sodium Chloride 0.9% 1,000 ML IV SCH (03:30)
[2021-11-04] MEDS ORDERED: Sodium Chloride 0.9% 10 ML Syringe FLUSH PRN (03:43)
[2021-11-04] MEDS ORDERED: Iopamidol 612 MG/ML 100 ML Bottle IVPUSH ONE (03:43)
== END 2021-11-04 05:43 | disposition home or self-care (01) ==
LOC: JD.ED 02:15
DX: K92.2 Gastrointestinal hemorrhage, unspecified (principal); F17.210 Nicotine dependence, cigarettes, uncomplicated; Z28.310 Unvaccinated for COVID-19; Z91.011 Allergy to milk products
CPT/HCPCS: 36415; 74177; 80053; 83735; 85025; 96361; 96374; 96375; 99285; C9113; J2405; J3490; J7030; Q9967

== ENCOUNTER 2022-06-29 23:08 | Emergency (ER) | payer SELFPAY ==
[2022-06-29] MEDS ORDERED: Sodium Chloride 0.9% 1,000 ML IV STA (23:55)
[2022-06-29] MEDS ORDERED: Sodium Chloride 0.9% 10 ML Syringe FLUSH PRN (23:55)
[2022-06-29] MEDS ORDERED: Metoclopramide 10 MG/2 ML SDV IVPUSH ONE (23:55)
[2022-06-30] MEDS ORDERED: Iopamidol 612 MG/ML 100 ML Bottle IVPUSH ONE (00:34)
[2022-06-30] MEDS ORDERED: LORazepam 2 MG/ML SDV IVPUSH ONE (00:58)
[2022-06-30 02:09] VITALS: BP 123/73; PULSE 70
== END 2022-06-30 02:09 | disposition home or self-care (01) ==
LOC: JD.ED 23:08
DX: R10.84 Generalized abdominal pain (principal); R11.2 Nausea with vomiting, unspecified; F41.9 Anxiety disorder, unspecified; Z91.011 Allergy to milk products
CPT/HCPCS: 36415; 74177; 80053; 80306; 81001; 83690; 83735; 84443; 85025; 96374; 96375; 99284; J2060; J2765; J3490; J7030; Q9967; 99283

== ENCOUNTER 2022-07-07 17:23 | Emergency (ER) | payer SELFPAY ==
[2022-07-07 18:12] VITALS: BP 129/95; PULSE 51
[2022-07-07] MEDS ORDERED: HYDROmorphone 1 MG/ML Syringe IM ONE (20:40)
== END 2022-07-07 22:20 | disposition home or self-care (01) ==
LOC: JD.ED 17:23
DX: K08.89 Other specified disorders of teeth and supporting structures (principal); Z91.011 Allergy to milk products
CPT/HCPCS: 96372; 99282; J1170

== ENCOUNTER 2022-09-20 05:28 | Emergency (ER) | payer SELFPAY ==
[2022-09-20] MEDS ORDERED: Sodium Chloride 0.9% 1,000 ML IV SCH (06:00)
[2022-09-20] MEDS ORDERED: Ondansetron 4 MG/2 ML SDV IVPUSH ONE (06:00)
[2022-09-20] MEDS ORDERED: HYDROmorphone 1 MG/ML Syringe IVPUSH STA (06:00)
[2022-09-20 06:06] LABS: HEMATOCRIT 47.9 % (40.1-51.0); HEMOGLOBIN 16.2 gm/dl (13.7-17.5); MEAN CORPUSCULAR HEMOGLOBIN 30.5 pg (25.7-32.2); MEAN CORPUSCULAR HGB CONC 33.8 g/dl (32.2-35.5); MEAN PLATELET VOLUME 10.1 fl (9.4-12.3); PLATELET COUNT,PLT 200 K/mm3 (163-337); RED BLOOD CELL COUNT 5.32 M/mm3 (4.63-6.08); WHITE BLOOD CELL COUNT,WBC 9.31 K/mm3 (4.23-9.07)
[2022-09-20] MEDS ORDERED: Iopamidol 612 MG/ML 100 ML Bottle IVPUSH ONE (06:15)
[2022-09-20 06:16] LABS: A/G RATIO 1.4 (1-2); ALBUMIN 4.2 g/dl (3.4-5.0); ANION GAP 12.5 (5-15); BILIRUBIN TOTAL 0.4 mg/dL (0.2-1.0); CALCIUM 8.6 mg/dL (8.5-10.1); EST CRCL DRUG DOSING (CG) 92.14 mL/min; POTASSIUM,K 3.5 mEq/L (3.5-5.1); PROTEIN TOTAL,TP 7.3 g/dl (6.4-8.2)
[2022-09-20 06:48] LABS: BAND PERCENT MAN 0 % (0-10); BASOPHILS PERCENT MAN 0 (0.2-1.2); EOSINOPHILS PERCENT MAN 5 % (0.8-7.0); LYMPHOCYTES % ATYPICAL MANUAL 0 %; LYMPHOCYTES PERCENT MAN 44 % (20-40); MONOCYTES PERCENT MAN 4 % (2-10)
[2022-09-20 06:49] LABS: PLATELET COUNT ESTIMATE ADEQUATE
[2022-09-20 07:03] LABS: APPEARANCE,URINE CLEAR (Clear); BILIRUBIN,URINE NEGATIVE (Negative); COLOR,URINE LIGHT YELLOW (Yellow); GLUCOSE,URINE NEGATIVE (Negative); KETONES,URINE NEGATIVE (Negative); LEUKOCYTE ESTERASE,URINE NEGATIVE (Negative); NITRITE,URINE NEGATIVE (Negative); OCCULT BLOOD,URINE 3+ (Negative); PROTEIN,URINE TRACE (Negative); UROBILINOGEN,URINE 0.2 (0.2-1.0)
[2022-09-20 07:09] LABS: BACTERIA,URINE RARE /hpf (FEW); EPITHELIAL CELLS,URINE NOT SEEN /hpf (0-5); MUCUS,URINE RARE /hpf (FEW); WBC,URINE NOT SEEN /hpf (0-5)
[2022-09-20] MEDS ORDERED: Simethicone 80 MG Tab.Chew PO ONE (07:50)
[2022-09-20 08:34] VITALS: BP 116/74; PULSE 80
== END 2022-09-20 08:25 | disposition home or self-care (01) ==
LOC: JD.ED 05:28
DX: R10.31 Right lower quadrant pain (principal); F17.210 Nicotine dependence, cigarettes, uncomplicated; Z91.011 Allergy to milk products
CPT/HCPCS: 36415; 74177; 80053; 81001; 83690; 85007; 85027; 96361; 96374; 96375; 99284; J1170; J2405; J7030; Q9967

== ENCOUNTER 2022-11-01 08:09 | Emergency (ER) | payer SELFPAY ==
[2022-11-01] MEDS ORDERED: Ketorolac 60 MG/2 ML SDV IM ONE (08:25)
[2022-11-01] MEDS ORDERED: HYDROmorphone 1 MG/ML Syringe IM ONE (08:25)
[2022-11-01 09:36] VITALS: BP 111/69; PULSE 66
== END 2022-11-01 09:09 | disposition home or self-care (01) ==
LOC: JD.ED 08:09
DX: K04.7 Periapical abscess without sinus (principal); Z91.011 Allergy to milk products
CPT/HCPCS: 96372; 99282; J1170; J1885; 99283

== ENCOUNTER 2022-11-16 14:24 | Emergency (ER) | payer SELFPAY ==
[2022-11-16] MEDS ORDERED: Lidocaine 1% 10 ML MDV INJECT ONE (15:15)
[2022-11-16] MEDS ORDERED: Bupivacaine 0.5%/EPINEPHrine 1:200,000 30 ML SDV INJECT ONE (15:15)
[2022-11-16 19:28] VITALS: BP 109/69; PULSE 76
== END 2022-11-16 16:20 | disposition home or self-care (01) ==
LOC: JD.ED 14:24
DX: K02.9 Dental caries, unspecified (principal); F17.210 Nicotine dependence, cigarettes, uncomplicated; Z79.899 Other long term (current) drug therapy; Z91.011 Allergy to milk products
CPT/HCPCS: 64400; 99282; 99283

== ENCOUNTER 2023-01-12 09:43 | Emergency (ER) | payer SELFPAY ==
[2023-01-12] MEDS ORDERED: Sodium Chloride 0.9% 10 ML Syringe FLUSH PRN ×2 (10:19→10:26)
[2023-01-12] MEDS ORDERED: Ketorolac 30 MG/ML SDV IVPUSH ONE (10:22)
[2023-01-12] MEDS ORDERED: HYDROmorphone 0.5 MG/0.5 ML Syringe IVPUSH ONE (10:22)
[2023-01-12] MEDS ORDERED: Iopamidol 755 Mg/ML 100 ML Bottle IVPUSH ONE (10:26)
[2023-01-12] MEDS ORDERED: Sodium Chloride 0.9% 100 ML IV SCH (10:30)
[2023-01-12 10:38] LABS: BASOPHILS PERCENT AUTO 0.6 % (0.0-1.0); EOSINOPHILS ABSOLUTE AUTO 0.1 K/mm3 (0.0-0.4); EOSINOPHILS PERCENT AUTO 1.4 % (0.0-6.0); HEMATOCRIT 43.3 % (42.0-52.0); IMMATURE GRAN ABSOLUTE AUTO 0.01 K/mm3 (0.00-0.05); IMMATURE GRAN PERCENT AUTO 0.1 % (0.0-0.4); LYMPHOCYTES ABSOLUTE AUTO 1.2 K/mm3 (1.0-4.8); LYMPHOCYTES PERCENT AUTO 16.6 % (24.0-44.0); MEAN CORPUSCULAR HEMOGLOBIN 30.6 pg (28.0-32.0); MEAN CORPUSCULAR HGB CONC 34.6 g/dl (32.0-36.0); MEAN CORPUSCULAR VOLUME 88.4 fl (83.0-99.0); MEAN PLATELET VOLUME 9.4 fl (9.4-12.4); MONOCYTES ABSOLUTE AUTO 0.4 K/mm3 (0.0-0.8); MONOCYTES PERCENT AUTO 6.1 % (0.0-8.0); NEUTROPHILS ABSOLUTE AUTO 5.3 K/mm3 (1.8-7.7); NEUTROPHILS PERCENT AUTO 75.2 % (41.0-71.0); PLATELET COUNT,PLT 202 K/mm3 (150-400)
[2023-01-12 11:16] LABS: A/G RATIO 1.2 (1-2); ALANINE AMINOTRANSFERASE,ALT 20 U/L (16-63); ALKALINE PHOSPHATASE 51 U/L (46-116); ANION GAP 12.1 (5-15); ASPARTATE AMNIOTRANSFERASE,AST 13 U/L (15-37); BILIRUBIN TOTAL 0.8 mg/dL (0.2-1.0); BLOOD UREA NITROGEN,BUN 14 mg/dL (7-18); BUN/CREATININE RATIO 17.5 (14-18); CALCIUM 8.8 mg/dL (8.5-10.1); CARBON DIOXIDE,CO2 27 mEq/L (21-32); CHLORIDE,CL 106 mEq/L (98-107); CREATININE 0.8 mg/dL (0.7-1.3); EST CRCL DRUG DOSING (CG) 108.26 mL/min; ESTIMATED GFR 125 mL/min (>60); GLUCOSE RANDOM 101 mg/dL (70-99); PROTEIN TOTAL,TP 7.3 g/dl (6.4-8.2); SODIUM,NA 140 mEq/L (136-145)
[2023-01-12 11:17] LABS: TROPONIN I HIGH SENSITIVITY < 4 pg/mL (<=76)
[2023-01-12 11:18] LABS: POTASSIUM,K 5.1 mEq/L (3.5-5.1)
[2023-01-12 13:32] VITALS: BP 130/79; PULSE 70
== END 2023-01-12 12:40 | disposition home or self-care (01) ==
LOC: JD.ED 09:43
DX: R07.89 Other chest pain (principal); R06.02 Shortness of breath; Z91.011 Allergy to milk products
CPT/HCPCS: 36415; 71275; 80053; 84484; 85025; 93005; 96374; 96375; 99285; J1170; J1885; J3490; Q9967; 93010; 99284